=== PATIENT | female | born 1960 | race Caucasian/White ===

== ENCOUNTER → 2016-10-06 | Outpatient (CLI) | payer BC ==
[~2016-10-06] MED LIST: CARV6.2512 PO; ERGO500017 PO; ESOM40CA PO; EZET1TAB18 PO; FURO-93 PO; LISI-167 PO; METF500T4 PO; ONDA4TAB13 SL; POTA25TA4 PO; SITA25TA PO
== END | disposition home or self-care (01) ==
LOC: CFH 10:23
PROVIDERS: ATTEND Nurse Practitioner Family
DX: Z12.31 Encounter for screening mammogram for malignant neoplasm of breast (principal)
CPT/HCPCS: 77063; G0202

== ENCOUNTER → 2018-06-04 | Outpatient (CLI) | payer BC ==
[~2018-06-04] MED LIST changes: -EZET1TAB18 PO; +EZET1TAB26 PO; +METF500T17 PO; -METF500T4 PO
== END | disposition home or self-care (01) ==
LOC: CFH 08:42
PROVIDERS: ATTEND Family Medicine
DX: M16.11 Unilateral primary osteoarthritis, right hip (principal)

== ENCOUNTER 2018-11-15 09:51 | Outpatient (CLI) | payer BC | END 2018-11-15 23:59 | disposition home or self-care (01) | LOC: CFH 09:51 | PROVIDERS: ATTEND Internal Medicine Cardiovascular Disease | DX: I08.2 Rheumatic disorders of both aortic and tricuspid valves (principal); E11.9 Type 2 diabetes mellitus without complications; E78.5 Hyperlipidemia, unspecified; I10 Essential (primary) hypertension | CPT/HCPCS: 75571; 93306 ==

== ENCOUNTER 2019-01-20 12:21 | Outpatient (CLI) | payer BC | END 2019-01-20 23:59 | disposition home or self-care (01) | LOC: CFH 12:21 | PROVIDERS: ATTEND Internal Medicine Cardiovascular Disease | DX: I25.9 Chronic ischemic heart disease, unspecified (principal); I25.10 Atherosclerotic heart disease of native coronary artery without angina pectoris; I35.0 Nonrheumatic aortic (valve) stenosis | CPT/HCPCS: 78452; 93017; A9502 ==

== ENCOUNTER 2019-02-26 09:28 | Observation (INO) | payer BC ==
[~2019-02-26] VITALS: Ht 162.6 cm; Wt 73.4 kg
[~2019-02-26 09:28] MED LIST changes: +ASPI81TA45 PO; +GABA300C10 PO; +OMEG-14 PO; +ROSU40TA PO; +SPIR25TA5 PO; +VERA360C2 PO
[2019-02-26] MEDS ORDERED: MIDAZOLAM 1 MG/ML, 2ML ONE ×2 (12:40→13:00)
[2019-02-26] MEDS ORDERED: NITROGLYCERIN 5 MG/ML, 10ML ONE ×2 (12:40)
[2019-02-26] MEDS ORDERED: VERAPAMIL 2.5 MG/ML, 2ML ONE (12:40)
[2019-02-26] MEDS ORDERED: LIDOCAINE-MPF 1%, 5ML ONE (12:41)
[2019-02-26] MEDS ORDERED: HEPARIN 1,000 UNITS/ML, 10ML ONE (12:41)
[2019-02-26] MEDS ORDERED: FENTANYL PF 100 MCG/2ML ONE (13:00)
[2019-02-26] MEDS ORDERED: PRASUGREL 10 MG TABLET ONE (13:01)
[2019-02-26] MEDS ORDERED: BIVALIRUDIN 250 MG ONE (13:01)
[2019-02-26] MEDS ORDERED: BIVALIRUDIN 250 MG in SODIUM CHLORIDE 0.9% 50 ML IV SCH (13:32)
[2019-02-26] MEDS ORDERED: ONDANSETRON 2MG/ML, 2ML IVPush PRN (14:00)
[2019-02-26] MEDS ORDERED: ZOLPIDEM 5MG TABLET PO PRN (14:00)
[2019-02-26] MEDS ORDERED: ERGOCALCIFEROL 50,000 UNIT CAPSULE PO SCH (16:33)
[2019-02-26] MEDS: GABAPENTIN 300 MG CAPSULE PO SCH ×2 (17:53→20:31)
[2019-02-26] MEDS: SODIUM CHLORIDE 0.9% 1,000 ML IV SCH (18:00)
[2019-02-26 19:27] VITALS: BP 120/65
[2019-02-26] MEDS: LISINOPRIL 40 MG TABLET PO SCH (20:30)
[2019-02-26] MEDS: metFORMIN 500 MG TABLET PO SCH (20:32)
[2019-02-26] MEDS ORDERED: EZETIMIBE 10 MG TABLET PO SCH (21:00)
[2019-02-26] MEDS ORDERED: ATORVASTATIN 80 MG TABLET PO SCH (21:00)
[2019-02-26] MEDS ORDERED: SIMVASTATIN 10 MG TABLET PO SCH (21:00)
[2019-02-27 00:51] VITALS: BP 104/61
[2019-02-27] MEDS: SODIUM CHLORIDE 0.9% 1,000 ML IV SCH ×2 (01:03→08:52)
[2019-02-27 05:22] LABS: ANION GAP 9 mmol/L (5-15); CALCIUM 9.5 mg/dL (8.5-10.1); CHLORIDE 110 mmol/L (98-107)
[2019-02-27] MEDS ORDERED: PANTOPROZOLE 40MG TABLET PO SCH (07:00)
[2019-02-27 07:05] VITALS: BP 126/73
[2019-02-27] MEDS: metFORMIN 500 MG TABLET PO SCH (08:43)
[2019-02-27] MEDS ORDERED: PRAS10TA4 PO (08:44)
[2019-02-27] MEDS ORDERED: NITR0.4T28 SL (08:44)
[2019-02-27] MEDS: LISINOPRIL 40 MG TABLET PO SCH (08:47)
[2019-02-27] MEDS: GABAPENTIN 300 MG CAPSULE PO SCH (08:48)
[2019-02-27] MEDS ORDERED: CLOPIDOGREL 75 MG TABLET PO SCH (09:00)
[2019-02-27] MEDS ORDERED: VERAPAMIL ER 180MG TABLET.ER PO SCH (09:00)
[2019-02-27] MEDS ORDERED: SPIRONOLACTONE 25 MG TABLET PO SCH (09:00)
[2019-02-27] MEDS ORDERED: ASPIRIN 81 MG TABLET EC PO SCH (09:00)
[2019-02-27] MEDS ORDERED: LINAGLIPTIN 5 MG TAB PO SCH (09:00)
[2019-02-27] MEDS ORDERED: PRASUGREL 10 MG TABLET PO SCH (09:00)
[2019-03-02] MEDS ORDERED: ERGOCALCIFEROL 50,000 UNIT CAPSULE PO SCH (09:00)
== END 2019-02-27 11:00 | disposition home or self-care (01) ==
LOC: CACL 09:28 → ORIP 13:32 → 5SO 14:55 → DCLOUNGE 02-27 10:44
PROVIDERS: ADMIT Internal Medicine Cardiovascular Disease; ATTEND Internal Medicine Cardiovascular Disease
DX: I25.110 Atherosclerotic heart disease of native coronary artery with unstable angina pectoris (principal); E11.22 Type 2 diabetes mellitus with diabetic chronic kidney disease; I13.10 Hypertensive heart and chronic kidney disease without heart failure, with stage 1 through stage 4 chronic kidney disease, or unspecified chronic kidney disease; E78.2 Mixed hyperlipidemia; I35.0 Nonrheumatic aortic (valve) stenosis; N18.2 Chronic kidney disease, stage 2 (mild); R84.5 Abnormal microbiological findings in specimens from respiratory organs and thorax; F17.210 Nicotine dependence, cigarettes, uncomplicated; E78.5 Hyperlipidemia, unspecified; Z79.82 Long term (current) use of aspirin; Z88.0 Allergy status to penicillin
CPT/HCPCS: 36415; 71046; 80048; 93005; 93458; 99156; 99157; C1725; C1769; C1874; C1887; C9600; G0378; J0583; J1644; J2250; J3010; Q9967

== ENCOUNTER → 2019-10-21 | Outpatient (CLI) | payer BC ==
[~2019-10-21] MED LIST changes: +NITR0.4T28 SL; +PRAS10TA4 PO
== END | disposition home or self-care (01) ==
LOC: CFH 09:38
PROVIDERS: ATTEND Family Medicine
DX: Z12.31 Encounter for screening mammogram for malignant neoplasm of breast (principal); N64.89 Other specified disorders of breast; N93.9 Abnormal uterine and vaginal bleeding, unspecified
CPT/HCPCS: 76830; 77067

== ENCOUNTER → 2020-03-10 | Outpatient (CLI) | payer BC ==
[~2020-03-10] MED LIST changes: +CLOP75TA PO; +EMPA10TA PO; +LISI-170 PO; +SITA100T PO
[2020-03-10 11:45] LABS: ALBUMIN 4.3 g/dL (3.4-5.0); ANION GAP 8 mmol/L (5-15); CALCIUM 9.6 mg/dL (8.5-10.1); CHLORIDE 110 mmol/L (98-107)
[2020-03-10 11:51] LABS: ALANINE AMINOTRANSFERASE 34 U/L (12-78); ALKALINE PHOSPHATASE 60 U/L (45-117); BILIRUBIN,TOTAL 0.9 mg/dL (0.2-1.0); CREATININE 1.37 mg/dL (0.55-1.02)
== END | disposition home or self-care (01) ==
LOC: STAR 10:20
PROVIDERS: ATTEND Obstetrics & Gynecology Female Pelvic Medicine and Reconstructive Surgery
DX: Z01.818 Encounter for other preprocedural examination (principal); R10.2 Pelvic and perineal pain; N95.0 Postmenopausal bleeding; N84.0 Polyp of corpus uteri; R00.1 Bradycardia, unspecified; Z20.828 Contact with and (suspected) exposure to other viral communicable diseases
CPT/HCPCS: 80053; 87635; 93005

== ENCOUNTER 2020-03-15 11:09 | Observation (INO) | payer BC ==
[~2020-03-15] VITALS: Ht 162.6 cm; Wt 73.6 kg
[~2020-03-15 11:09] MED LIST changes: +BUPIVACAINE/PF 0.25% ONE
[2020-03-15 12:16] VITALS: BP 131/79
[2020-03-15] MEDS ORDERED: CHLORHEXIDINE 15 ML UDC ONE (12:24)
[2020-03-15] MEDS ORDERED: CHLORHEXIDINE 15 ML UDC MM ONE (12:30)
[2020-03-15] MEDS ORDERED: LACTATED RINGERS 1,000 ML IV SCH (12:30)
[2020-03-15] MEDS ORDERED: hydrALAzine 20 MG/ML, 1ML IV PRN (15:00)
[2020-03-15] MEDS ORDERED: HYDROcodone/APAP 7.5-325MG/15ML UDC PO PRN (15:00)
[2020-03-15] MEDS ORDERED: MEPERIDINE/PF 25MG/0.5ML IVPush PRN (15:00)
[2020-03-15] MEDS ORDERED: DIPHENHYDRAMINE 50 MG/ML, 1ML IVPush PRN (15:00)
[2020-03-15] MEDS ORDERED: PROMETHAZINE 25 MG/ML, 1ML IVPush PRN (15:00)
[2020-03-15] MEDS ORDERED: HALOPERIDOL 5 MG/ML IV PRN (15:00)
[2020-03-15] MEDS ORDERED: LABETALOL 5MG/ML, 20ML IV PRN (15:00)
[2020-03-15] MEDS ORDERED: MIDAZOLAM 1 MG/ML, 2ML ONE (15:18)
[2020-03-15] MEDS ORDERED: DEXAMETHASONE 4 MG/ML, 1ML ONE (15:18)
[2020-03-15] MEDS ORDERED: FENTANYL PF 250 MCG/5ML ONE (15:18)
[2020-03-15] MEDS ORDERED: CLINDAMYCIN 150 MG/ML, 6ML ONE (15:20)
[2020-03-15] MEDS ORDERED: PROPOFOL 10 MG/ML, 20ML ONE (16:20)
[2020-03-15] MEDS ORDERED: ROCURONIUM 10MG/ML,5ML ONE (16:20)
[2020-03-15] MEDS ORDERED: SUCCINYLCHOLINE 20 MG/ML, 10ML ONE (16:20)
[2020-03-15] MEDS ORDERED: NEOSTIGMINE 1 MG/ML, 10ML ONE (16:20)
[2020-03-15] MEDS ORDERED: ONDANSETRON 2MG/ML, 2ML ONE ×2 (16:20→19:39)
[2020-03-15] MEDS ORDERED: GLYCOPYRROLATE 0.2MG/1ML, 5ML ONE (16:20)
[2020-03-15] MEDS ORDERED: CEFAZOLIN 1,000 MG ONE (16:20)
[2020-03-15] MEDS ORDERED: HYDROcodone/APAP 7.5-325MG/15ML UDC ONE (17:52)
[2020-03-15] MEDS ORDERED: FENTANYL PF 100 MCG/2ML ONE (17:52)
[2020-03-15] MEDS ORDERED: HYDROmorphone 1 MG/ML, 1ML INJ ONE (17:52)
[2020-03-15] MEDS: FENTANYL PF 100 MCG/2ML IV PRN ×2 (17:55→18:35)
[2020-03-15] MEDS ORDERED: KETOROLAC 30 MG/1 ML ONE (18:13)
[2020-03-15] MEDS: HYDROmorphone 1 MG/ML, 1ML INJ IVPush PRN ×2 (18:16→18:26)
[2020-03-15] MEDS ORDERED: KETOROLAC 30 MG/1 ML IVPush ONE (18:30)
[2020-03-15] MEDS ORDERED: ONDANSETRON 2MG/ML, 2ML IVPush ONE (20:00)
[2020-03-15] MEDS ORDERED: HYDROmorphone 1 MG/ML, 1ML INJ IV PRN (22:00)
[2020-03-15] MEDS ORDERED: KETOROLAC 30 MG/1 ML IV PRN (22:00)
[2020-03-15] MEDS ORDERED: ONDANSETRON 2MG/ML, 2ML IV PRN (22:00)
[2020-03-15] MEDS ORDERED: IBUPROFEN 600 MG TABLET PO PRN (22:00)
[2020-03-15 23:18] VITALS: BP 106/60
[2020-03-16 02:31] VITALS: BP 109/69
[2020-03-16] MEDS ORDERED: PANTOPRAZOLE 40MG TABLET ONE (03:57)
[2020-03-16] MEDS: OXYcodone/APAP 5/325MG TABLET PO PRN ×2 (04:04→09:05)
[2020-03-16] MEDS ORDERED: PANTOPRAZOLE 40MG TABLET PO SCH (06:00)
[2020-03-16 07:05] VITALS: BP 123/66
[2020-03-16] MEDS ORDERED: metFORMIN 500 MG TABLET PO SCH (08:00)
[2020-03-16] MEDS ORDERED: LISINOPRIL 20 MG TABLET PO SCH (09:00)
[2020-03-16] MEDS ORDERED: GABAPENTIN 300 MG CAPSULE PO SCH (09:00)
[2020-03-16] MEDS ORDERED: VERAPAMIL ER 180MG TABLET.ER PO SCH (09:00)
[2020-03-16] MEDS ORDERED: CLOPIDOGREL 75 MG TABLET PO SCH (09:00)
[2020-03-16] MEDS ORDERED: SPIRONOLACTONE 25 MG TABLET PO SCH (09:00)
[2020-03-16] MEDS ORDERED: LINAGLIPTIN 5 MG TAB PO SCH (09:00)
[2020-03-16 12:40] VITALS: BP 125/78
[2020-03-16] MEDS ORDERED: ONDANSETRON ODT 4 MG ONE (12:56)
[2020-03-16] MEDS ORDERED: ONDANSETRON ODT 4 MG PO PRN (13:00)
[2020-03-16] MEDS ORDERED: ATORVASTATIN 80 MG TABLET PO SCH (21:00)
== END 2020-03-16 13:18 | disposition home or self-care (01) ==
LOC: OUT 11:09 → 4NE 21:10 → DCLOUNGE 03-16 13:10
PROVIDERS: ADMIT Obstetrics & Gynecology Female Pelvic Medicine and Reconstructive Surgery; ATTEND Obstetrics & Gynecology Female Pelvic Medicine and Reconstructive Surgery
DX: N95.0 Postmenopausal bleeding (principal); N32.81 Overactive bladder; N70.11 Chronic salpingitis; N81.5 Vaginal enterocele; N84.0 Polyp of corpus uteri; R32 Unspecified urinary incontinence; I12.9 Hypertensive chronic kidney disease with stage 1 through stage 4 chronic kidney disease, or unspecified chronic kidney disease; E11.22 Type 2 diabetes mellitus with diabetic chronic kidney disease; N18.9 Chronic kidney disease, unspecified; I25.10 Atherosclerotic heart disease of native coronary artery without angina pectoris; K21.9 Gastro-esophageal reflux disease without esophagitis; M19.90 Unspecified osteoarthritis, unspecified site; Z88.0 Allergy status to penicillin; Z79.899 Other long term (current) drug therapy; Z87.440 Personal history of urinary (tract) infections; Z87.442 Personal history of urinary calculi; Z95.5 Presence of coronary angioplasty implant and graft
CPT/HCPCS: 58552; 82962; 88307; 96374; 96375; G0378; J0330; J0690; J1100; J1170; J1885; J2250; J2405; J2704; J2710; J3010; J7120; Q0162; S0077